=== PATIENT | female | born 1935 | race Caucasian/White ===

== ENCOUNTER 2025-01-03 08:01 | Emergency (ER) | payer MEDICARE, SELFPAY ==
[2025-01-03 08:05] VITALS: BP 172/88; PULSE 86; TEMP 36.9; O2SAT 97; BMI 39.5
--- NOTE | 2025-01-03 08:14 | ED_ITS ---
HPI HPI - General Adult General Chief complaint: Allergic Reaction Stated complaint: RASH Time Seen by Provider: 01/03/25 08:05 Source: patient Mode of arrival: ambulance Limitations: no limitations History of Present Illness HPI narrative: 89-year-old female presents from assisted living for a rash. She does not know when it started but she noticed it within the last day. She states it does not burn or itch. She does not know if she has been on any new medications. She had reportedly recently fallen and has a few small bruises on both forearms but there is this rash in addition to the bruises. She tells me she does not notice the rash unless she looks at it. Related Data Previous Rx's ?Medication ?Instructions ?Recorded triamcinolone acetonide 0.5 % 1 applic topical BID #15 grams 01/03/25 topical cream Allergies Allergy/AdvReac Type Severity Reaction Status Date / Time No Known Drug Allergies Allergy Verified 01/03/25 08:05 Review of Systems ROS Narrative A ten point review of systems is negative except as noted above. PFSH PFSH Social History Little interest or pleasure in doing things: not at all Feeling down, depressed, or hopeless: not at all Exam Narrative Exam Narrative: Nurses note and vital signs reviewed and patient is not hypoxic. General: The patient appears well and in no apparent distress. Patient is resting comfortably on cart. Skin: Warm, dry, no pallor noted. There are some bruises on each forearm. In addition there is an erythematous very minimally raised and therefore palpable rash present. There is no open area or drainage or lymphangitis or suggestion of infection. Head: Normocephalic, atraumatic Eye: Normal conjunctiva, no drainage Ears, Nose, Mouth, and Throat: oral mucosa is moist. Nares patent. Cardiovascular: Regular Rate and Rhythm Respiratory: Patient is in no distress, no accessory muscle use, lungs are clear to auscultation, no wheezing, rales or rhonchi Back: non-tender. There is no rash on her back GI: Obese soft and nontender. Abdominal wall has no rash. Musculoskeletal: All of her joints have full range of motion including her wrists and her elbows. She has no discomfort with range of motion of her wrists or her elbows Neurological: Awake and alert Psychiatric: Cooperative Constitutional Vital Signs, click to edit/add: Last Vital Signs Temp 98.4 F 01/03/25 08:05 Pulse 86 01/03/25 08:05 Resp 18 01/03/25 08:05 BP 172/88 H 01/03/25 08:05 Pulse Ox 97 01/03/25 08:05 O2 Del Method Room Air 01/03/25 08:05 Course Vital Signs Vital signs: Vital Signs Temperature 98.4 F 01/03/25 08:05 Pulse Rate 86 01/03/25 08:05 Respiratory Rate 18 01/03/25 08:05 Blood Pressure 172/88 H 01/03/25 08:05 Pulse Oximetry 97 01/03/25 08:05 Oxygen Delivery Method Room Air 01/03/25 08:05 Temperature 98.4 F 01/03/25 08:05 Pulse Rate 86 01/03/25 08:05 Respiratory Rate 18 01/03/25 08:05 Blood Pressure 172/88 H 01/03/25 08:05 Pulse Oximetry 97 01/03/25 08:05 Oxygen Delivery Method Room Air 01/03/25 08:05 Medical Decision Making MDM Narrative Medical decision making narrative: The cause of the rash is uncertain. It appears to be separate from the bruises. She has not been apparently exposed to any chemicals or cleaning agents nor has she been outside. She will be placed on Kenalog cream. Treatment diagnosis and follow-up were discussed with the patient. Differential Diagnosis Differential Diagnosis: Nonspecific rash, contact dermatitis Discharge Plan Discharge Chief Complaint: Allergic Reaction Clinical Impression: Rash Patient Disposition: Home, Self-Care Time of Disposition Decision: 08:07 Condition: Good Mode of Transportation: EMS Prescriptions / Home Meds: New triamcinolone acetonide 0.5 % cream 1 applic topical BID Qty: 15 0RF Print Language: Georgian Instructions: Acute Rash (ED)
== END 2025-01-03 09:51 | disposition home or self-care (01) ==
PROVIDERS: Emergency Provider Emergency Medicine
DX: R21 Rash and other nonspecific skin eruption (principal)
CPT/HCPCS: 99283

== ENCOUNTER 2025-05-25 07:35 | Emergency (ER) | payer MEDICARE, SELFPAY ==
--- OUTSIDE RECORDS SUMMARY | 2020-06-23 20:00 | XMS_ITS | Continuity of Care Document ---
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 Name Role Phone Maria R Elizabeth MD Unavailable Unavailable Allergies, Adverse Reactions, Alerts Substance Reaction Status Criticality No Known Allergies Active No Inform ation Procedures Procedure Date IMMUNIZATION ADMIN FLU VACC PRSV FREE INC ANTIG IMMUNIZATION ADMIN Advance Directives Directive Yes / No Effective Date File Name No Information Encounters Encounter Description Practice Location Reason(s) For Visit Diagnoses Date Provider Providers Copied on Encounter [facility] , [address], [place], [id number], [place] tel:[phone] [facility] Strategic Nurse Team No Information Glenn Heck. [address], [place], [id number], [place]. tel:[phone] Family History Family Member Type Diagnosis Age At Onset No Information Immunizations Vaccine Date Status Comments Influenza, quadrivalent, hig h dose, injectable, split virus, preservative free, 0.7 mL dose, Fluzone High-Dose Quad administered Source: New Immuniza tion Record Payers Payer name Insurance type Covered green party ID Authoriza tion(s) [employer] [place] [id number] [employer] [place] [id number] Social History Type Description Quantity Date Captured Comments Alcohol Use Details Unknown Caffeine Use Details Unknown Tobacco Use Status No Information Smoking Status No Information Sex Female Chief Complaint And Reason For Visit No Information Reason For Referral Reason For Referral No Information History Of Present Illness Encounter Date Complaint History Of Prese nt Illness No Information Functional Status Date Functional Assessmen t No Information Instructions Date Instruction Additional Infor mation No Information Assessments Type Assessment Date No Information Patient Care Teams Name Effective Dates (start - stop) Status Members No Information
[2025-05-25 07:37] VITALS: BP 152/63; PULSE 90; TEMP 36.6; O2SAT 99; BMI 39.1
--- NOTE | 2025-05-25 07:45 | CT_ITS ---
The [address] [address] Patient Name: NIMISHA PRADHAN MRN: [id number] date: 1935 Sex: F Assigned Patient Location: ED.MAIN Current Patient Location: ED.MAIN Accession/Order Number: [id number] Exam Date: 05/25/2025 08:10 Report Date: 05/25/2025 09:05 At the request of: TEZ SANCHEZ MD Procedure: CT head/brain wo con CT head/brain wo con 05/25/2025 8:37 AM SIGNS AND SYMPTOMS: Fall, headache TECHNIQUE:Multi-detector CT axial slices of the brain were obtained without IV contrast. CT was performed with one or more of the following dose reduction techniques: Automated exposure control, adjustment of the mA and/or kV according to patient size, or use of iterative reconstruction technique. COMPARISON: None. FINDINGS: There is no shift of the midline structures, acute intracranial bleeding, mass effects, or evidence of acute ischemia. Atherosclerotic changes are noted in the V4 segments of the vertebral arteries and intracranial segments of the internal carotid arteries. There is periventricular white matter hypoattenuation. The ventricular system is normal in size. The brainstem and the cerebellum are unremarkable. The visualized intraorbital contents, the visualized paranasal sinuses, and the infratemporal soft tissues show no acute abnormality. The osseous structures in the skull base and the calvarium show no abnormality. CT/CT head/brain wo con IMPRESSION: No acute intracranial pathology. Chronic age-related neurodegenerative changes are noted as above. Impression dictated by: Duncan Zuleta M.D. 05/25/2025 9:05 AM Dictation Location: [place] [address] Electronically authenticated by: [id number] Y Date: 05/25/2025 09:05
--- NOTE | 2025-05-25 07:45 | XR_ITS ---
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 There is moderate to severe disc height loss in the upper lumbar spine. Atherosclerotic changes are noted in the thoracic aorta.. No evidence of fracture or bony destructive lesion. XR/XR thoracic spine 2V IMPRESSION: No fracture or subluxation. 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 Multilevel degenerative changes noted as above. Impression dictated by: Duncan Zuleta M.D. 05/25/2025 9:06 AM Dictation Location: [place] [address] Electronically authenticated by: [id number] Y Date: 05/25/2025 09:06
--- NOTE | 2025-05-25 07:45 | XR_ITS ---
The [place] [id number] Patient Name: NIMISHA PRADHAN MRN: [id number] date: 1935 Sex: F Assigned Patient Location: ED.MAIN Current Patient Location: ED.MAIN Accession/Order Number: [id number] Exam Date: 05/25/2025 08:10 Report Date: 05/25/2025 09:07 At the request of: TEZ SANCHEZ MD Procedure: XR lumbar spine 2-3V XR lumbar spine 2-3V 05/25/2025 8:37 AM SIGNS AND SYMPTOMS: ^fall PROTOCOLS: Frontal and lateral graphs of the lumbar spine COMPARISON: None FINDINGS: There is a dextro convex curvature at the thoracolumbar junction with a levoconvex curvature of the lower lumbar spine. There is posterior and intervertebral fusion from L4 through S1. No hardware complication or malalignment. There is disc height loss throughout. Vertebral body heights are preserved. Degenerative changes are noted in the sacroiliac joints. XR/XR lumbar spine 2-3V IMPRESSION: No acute bony injury. Degenerative and postoperative changes are noted as above. Impression dictated by: Duncan Zuleta M.D. 05/25/2025 9:07 AM Dictation Location: [place] [address] Electronically authenticated by: [id number] Y Date: 05/25/2025 09:07
--- NOTE | 2025-05-25 07:45 | CT_ITS ---
[address] [address] Patient Name: NIMISHA PRADHAN MRN: [id number] date: 1935 Sex: F Assigned Patient Location: ED.MAIN Current Patient Location: ED.MAIN Accession/Order Number: [id number] Exam Date: 05/25/2025 08:10 Report Date: 05/25/2025 09:27 At the request of: TEZ SANCHEZ MD Procedure: CT cervical spine wo con CT cervical spine wo con 05/25/2025 8:37 AM SIGN AND SYMPTOMS: ^fall TECHNIQUE: Multi detector CT axial slices of the cervical spine were obtained without IV contrast. Volumetric acquisition sagittal, coronal, and 3-D reconstructions were performed and reviewed. CT was performed with one or more of the following dose reduction techniques: Automated exposure control, adjustment of the mA and/or kV according to patient size, or use of iterative reconstruction technique. COMPARISON: None. FINDINGS: There is preservation of the vertebral body heights and intervertebral discs. No fractures or dislocations are seen. There is 7 mm of anterolisthesis of C5 upon C6 with fusion of the C5-C6 intervertebral disc space. There is also fusion between the intervertebral discs at C4-C5 and C6-C7. There is severe disc height loss at C7-T1. Facet hypertrophy is present throughout the cervical spine. Degenerative changes are noted in the craniocervical junction and atlantoaxial joint. The prevertebral soft tissues are within normal limits. The paraspinous soft tissues are within normal limits. Atherosclerotic changes are noted in the carotid bifurcations. The lung apices are unremarkable. CT/CT cervical spine wo con IMPRESSION: No fracture. There is 7 mm of anterolisthesis of C5 upon C6 with fusion of the C5-C6 intervertebral disc space. Severe multilevel degenerative changes noted as above. Impression dictated by: Duncan Zuleta M.D. 05/25/2025 9:27 AM [facility]ictation [facility] Electron[facility] authenticated by: [id number] Y Date: 05/25/2025 09:27
--- NOTE | 2025-05-25 07:46 | ED.GENADUL1 ---
HPI HPI - General Adult General Chief complaint: Fall Stated complaint: FALL; BACK PAIN Time Seen by Provider: 05/25/25 07:37 Source: patient Mode of arrival: ambulance Limitations: no limitations History of Present Illness HPI narrative: 89-year-old female presented to the emergency department for head neck and back pain. This morning the patient states an aide was trying to get her up and the patient fell and the patient states she hit her entire back on the floor and she hit her head. Everything in that area hurts. According to the paramedics, they were told that the patient was lowered to the floor. This occurred just before coming into the emergency department. Related Data Home Medications ?Medication ?Instructions ?Recorded ?Confirmed Saccharomyces boulardii 250 mg 250 mg PO DAILY 05/25/25 05/25/25 capsule (Daily Probiotic (S. boulardii)) acetaminophen 325 mg capsule 1,300 mg PO TID 05/25/25 05/25/25 amlodipine 10 mg tablet 10 mg PO DAILY 05/25/25 05/25/25 apixaban 2.5 mg tablet (Eliquis) 2.5 mg PO Q12H 05/25/25 05/25/25 cholecalciferol (vitamin D3) 125 5,000 unit PO DAILY 05/25/25 05/25/25 mcg (5,000 unit) tablet ferrous sulfate 325 mg (65 mg 325 mg PO DAILY 05/25/25 05/25/25 iron) tablet (Feosol) furosemide 40 mg tablet 40 mg PO DAILY 05/25/25 05/25/25 lisinopril 40 mg tablet 40 mg PO DAILY 05/25/25 05/25/25 loperamide 2 mg tablet 2 mg PO Q6H PRN loose stool 05/25/25 05/25/25 (Anti-Diarrheal (loperamide)) loratadine 10 mg tablet 10 mg PO DAILY 05/25/25 05/25/25 (Allerclear) menthol 7.5 % topical patch 1 patch topical DAILY 05/25/25 05/25/25 metoprolol tartrate 50 mg tablet 50 mg PO Q12H 05/25/25 05/25/25 (Lopressor) olopatadine 0.2 % eye drops 1 drp ophthalmic (eye) DAILY 05/25/25 05/25/25 (Advanced Eye Relief (olopatadine HCl)) potassium chloride 20 mEq 20 meq PO DAILY 05/25/25 05/25/25 tablet,extended release therapeutic multivitamin 1 tab PO DAILY 05/25/25 05/25/25 (Thera-Tabs tablet) Previous Rx's ?Medication ?Instructions ?Recorded triamcinolone acetonide 0.5 % 1 applic topical BID #15 grams 01/03/25 topical cream Allergies Allergy/AdvReac Type Severity Reaction Status Date / Time shellfish derived Allergy Severe Anaphylaxis Verified 05/25/25 07:45 Opioid HPI Opioid Management Most Recent Opioid Data: Last Pain Scale 7 Today, 07:37 Last MAR Pain Assessment Today, 09:50 Review of Systems ROS Narrative A ten point review of systems is negative except as noted above. [facility] Medical History (Updated 05/25/25 @ 09:56 by Vinnie Box MD) Anxiety disorder ?F41.9 - Anxiety disorder, unspecified (ICD-10) COPD (chronic obstructive pulmonary disease) ?J44.9 - Chronic obstructive pulmonary disease, unspecified (ICD-10) Hypertension ?I10 - Essential (primary) hypertension (ICD-10) Afib ?I48.91 - Unspecified atrial fibrillation (ICD-10) Weakness ?R53.1 - Weakness (ICD-10) Vitamin D deficiency ?E55.9 - Vitamin D deficiency, unspecified (ICD-10) SIRS (systemic inflammatory response syndrome) ?R65.10 - Systemic inflammatory response syndrome (SIRS) of non-infectious origin without acute organ dysfunction (ICD-10) Sepsis ?A41.9 - Sepsis, unspecified organism (ICD-10) Incontinence of bowel ?R15.9 - Full incontinence of feces (ICD-10) Incontinence of urine ?R32 - Unspecified urinary incontinence (ICD-10) Incontinence in female ?R32 - Unspecified urinary incontinence (ICD-10) Hypo-osmolality and hyponatremia ?E87.1 - Hypo-osmolality and hyponatremia (ICD-10) Hypokalemia ?E87.6 - Hypokalemia (ICD-10) Dysphagia ?R13.10 - Dysphagia, unspecified (ICD-10) Chronic pain syndrome ?G89.4 - Chronic pain syndrome (ICD-10) Ulcerative colitis ?K51.90 - Ulcerative colitis, unspecified, without complications (ICD-10) Anemia ?D64.9 - Anemia, unspecified (ICD-10) Osteoarthritis ?M19.90 - Unspecified osteoarthritis, unspecified site (ICD-10) Social History Little interest or pleasure in doing things: not at all Feeling down, depressed, or hopeless: not at all Exam Narrative Exam Narrative: Nurses note and vital signs reviewed and patient is not hypoxic. General:The patient appears well and in no apparent distress.Patient is resting comfortably on cart. Skin:Warm, dry, no pallor noted.There is no rash noted. Head:Normocephalic, atraumatic Eye: Normal conjunctiva, no drainage Ears, Nose, Mouth, and Throat: oral mucosa is moist. Nares patent. Cardiovascular:Regular Rate and Rhythm Respiratory:Patient is in no distress, no accessory muscle use, lungs are clear to auscultation, no wheezing, rales or rhonchi Back: The entire length of her spine seems to be tender to palpation. There is no bruise or abrasion. GI: Soft and nontender Musculoskeletal: No palpable tenderness to her extremities including her hips. Small skin tear with bruising of the right upper arm. Neurological: Awake and alert Psychiatric:Cooperative Constitutional Vital Signs, click to edit/add: Last Vital Signs Temp 97.8 F 05/25/25 07:37 Pulse 90 05/25/25 07:37 Resp 05/25/25 07:37 BP 152/63 H 05/25/25 07:37 Pulse Ox 99 05/25/25 07:37 O2 Del Method Room Air 05/25/25 07:37 Course Vital Signs Vital signs: Vital Signs Temperature 97.8 F 05/25/25 07:37 Pulse Rate 90 05/25/25 07:37 Respiratory Rate 05/25/25 07:37 Blood Pressure 152/63 H 05/25/25 07:37 Pulse Oximetry 99 05/25/25 07:37 Oxygen Delivery Method Room Air 05/25/25 07:37 Temperature 97.8 F 05/25/25 07:37 Pulse Rate 90 05/25/25 07:37 Respiratory Rate 05/25/25 07:37 Blood Pressure 152/63 H 05/25/25 07:37 Pulse Oximetry 99 05/25/25 07:37 Oxygen Delivery Method Room Air 05/25/25 07:37 Medical Decision Making MDM Narrative Medical decision making narrative: All CAT scans and x-rays are negative for acute findings and she is released back to [facility]. Findings were discussed with the patient. Differential Diagnosis Differential Diagnosis: Fracture, contusion, intracranial hemorrhage Imaging Data CT scan - head: Radiologist's impression: ITS Impressions Cervical Spine CT 05/25/25 07:45 IMPRESSION: No fracture. There is 7 mm of anterolisthesis of C5 upon C6 with fusion of the C5-C6 intervertebral disc space. Severe multilevel degenerative changes noted as above. Impression dictated by: Duncan Zuleta M.D. 05/25/2025 9:27 AM Dictation Location: [id number] Electronically authenticated by: [id number] Y Date: 05/25/2025 09:[address] 05/25/25 07:45 IMPRESSION: No acute intracranial pathology. Chronic age-related neurodegenerative changes are noted as above. Impression dictated by: Duncan Zuleta M.D. 05/25/2025 9:05 AM Dictation Location: [facility] Electronically authenticated by: [id number] Y Date: 05/25/2025 09:05 Lumbar Spine X-Ray 05/25/25 07:45 IMPRESSION: No acute bony injury. Degenerative and postoperative changes are noted as above. Impression dictated by: Duncan Zuleta M.D. 05/25/2025 9:07 AM Dictation Location: [id number] Electronically authenticated by: [id number] Y Date: 05/25/2025 09:07 Thoracic Spine X-Ray 05/25/25 07:45 IMPRESSION: No fracture or subluxation. 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 Multilevel degenerative changes noted as above. Impression dictated by: Duncan Zuleta M.D. 05/25/2025 9:06 AM Dictation Location: [employer] Electronically authenticated by: [id number] Y Date: 05/25/2025 09:06 ECG Data Attestation: I personally reviewed and interpreted this ECG as follows: (EKG on my interpretation shows sinus rhythm with rate of 86 and no acute change) Discharge Plan Discharge Chief Complaint: Fall Clinical Impression: Fall, Skin tear Patient Disposition: Home, Self-Care Time of Disposition Decision: 09:55 Condition: Good Mode of Transportation: EMS Prescriptions / Home Meds: No Action triamcinolone acetonide 0.5 % cream 1 applic topical BID Qty: 15 0RF acetaminophen 325 mg capsule 1,300 mg PO TID amlodipine 10 mg tablet 10 mg PO DAILY Eliquis 2.5 mg tablet 2.5 mg PO Q12H ferrous sulfate [Feosol] 325 mg (65 mg iron) tablet 325 mg PO DAILY furosemide 40 mg tablet 40 mg PO DAILY lisinopril 40 mg tablet 40 mg PO DAILY loratadine [Allerclear] 10 mg tablet 10 mg PO DAILY metoprolol tartrate [Lopressor] 50 mg tablet 50 mg PO Q12H olopatadine [Advanced Eye Relief (olopatad)] 0.2 % drops 1 drp ophthalmic (eye) DAILY potassium chloride 20 mEq tablet extended release 20 meq PO DAILY Saccharomyces boulardii [Daily Probiotic (S. boulardii)] 250 mg capsule 250 mg PO DAILY Thera-Tabs Tablet 1 tab PO DAILY cholecalciferol (vitamin D3) 125 mcg (5,000 unit) tablet 5,000 unit PO DAILY menthol 7.5 % adhesive patch,medicated 1 patch topical DAILY Patient Comments: apply to lower back in AM and remove PM loperamide [Anti-Diarrheal (loperamide)] 2 mg tablet 2 mg PO Q6H PRN (Reason: loose stool) Print Language: Trinidadian Instructions: Fall Prevention for Older Adults (ED) Referrals: Physician,Non-Staff, MD [Primary Care Provider] - 1 week
--- OUTSIDE RECORDS SUMMARY | 2025-05-25 07:58 | XMS_ITS | Encounter Summary ---
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 Name Role Phone Unavailable Primary Care Provider Unavailabl e Encounter Details Date Type Department Care Team (Late st Contact Info) Description 03/04/2025 [facility] [address] [place] [id number] Unallocated, [facility]oms Provider, [address] [place] [address] Social History Tobacco Use Types Packs/Day Years Used Date Smoking Tobacco: Never Assessed Comments Unknown Sex and Gender Information Value Date Recorded Sex Assigned at Not on file Legal Sex Female 10:26 AM EDT Gender Identity Not on file Sexual Orientation Not on file documented as of this encounter Plan of Treatment Not on file documented as of this encounter Visit Diagnoses Not on filedocumented in this encounter
--- OUTSIDE RECORDS SUMMARY | 2025-05-25 07:58 | XMS_ITS | Encounter Summary ---
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
--- OUTSIDE RECORDS SUMMARY | 2025-05-25 07:58 | XMS_ITS | Clinical Summary ---
Author Organization [facility] Address [address] [place] [address] Care Team Providers Care Chainstitch Seat Joiner Name Role Phone Unavailable Primary Care Provider Unavailabl e Allergies Active Allergy Reactions Criticality Noted Date Comments Mold Extracts 06/17/2014 Other 06/17/2014 DUST, MOLD Shellfish Containing Products 2013 Medications multivitamin (THERAGRAN) per tablet Take 1 tablet by mouth daily . Active acetaminophen (Tylenol Arthritis Pain) 650 MG CR tabletIndications:D DD (degenerative disc disease), lumbar,Pain of left hip joint Take 2 (two) tablets (1,300 mg total) by mouth 2 (two) times a day . 9 Active amLODIPine (NORVASC) 5 MG tabletIndications:E ssential hypertension Take 1 (one) tablet (5 mg total) by mouth daily . 90 tablet 1 1 Active oxyCODONE-acetamino phen (PERCOCET) 5-325 mg per tabletIndications:L eft hip pain,Primary osteoarthritis of right knee 1 TO 2 TABS EVERY 4 TO 6 HOURS FOR PAIN . 90 tablet 1 Active lisinopriL (PRINIVIL,ZESTRIL) 20 MG tabletIndications:E ssential hypertension Take 2 (two) tablets (40 mg total) by mouth daily . 180 tablet 1 1 Active furosemide (LASIX) 20 MG tabletIndications:D ependent edema Take 1 (one) tablet (20 mg total) by mouth daily . 60 tablet 2 1 Active apixaban (ELIQUIS) 2.5 mg Tab Take 1 (one) tablet (2.5 mg total) by mouth 2 (two) times a day . 60 tablet 1 Active metoprolol tartrate (LOPRESSOR) 50 MG tablet Take 1 (one) tablet (50 mg total) by mouth 2 (two) times a day . 60 tablet 1 Active Active Problems Problem Noted Date Diagnosed Date Paroxysmal atrial fibrillation 05/15/2021 Assessment & Plan (05/15/2021 11:38 AM EDT): Patient was found to have atrial fibrillation overnight. At this time, she has reverted back to normal sinus rhythm. She was asymptomatic with the atrial fibrillation. At this time we are unsure whether the atrial fibrillation is paroxysmal or if this was the first episode secondary to her acute illness. She is a [id number] score of 4. I have spoken to her about the different anticoagulants. She states that she has been relatively stable on her feet. I would continue metoprolol 25 mg twice daily and start her on Eliquis 2.5 mg twice daily. She does meet requirements for low-dose Eliquis. We will obtain a 2-week event recorder at discharge and have her follow-up with us in the office. Fecal impaction 05/14/2021 Assessment & Plan (05/15/2021 10:00 AM EDT): - CT A/P without contrast showed fecal impaction with a large amount of stool throughout the distal colon and rectum, the rectum measures up to 8.5 cm in diameter. Fluid-filled proximal large and small bowel loops suggests an element of anatomic obstruction related to the stool - + bowel function - AXR 05/14 shows moderate amount of stool but likely improved from admission Xray - Continue on stool softeners, enemas and PRN suppositories Sepsis 05/13/2021 Generalized abdominal pain 05/13/2021 Assessment & Plan (05/15/2021 9:59 AM EDT): - Possibly related to diverticulitis or colitis per repeat CT 05/13 - No pneumoperitoneum on imaging - WBC slowly trending down, 18.28 - Afebrile, HDS, RA - Creat normalized - IVF - Vanc/Zosyn - Fulls - Lovenox for DVT ppx - PRN pain control per primary - [facility] [place] - Will see and discuss with Dr. Escalante - Monitor course Elevated troponin 05/13/2021 Assessment & Plan (05/15/2021 11:20 AM EDT): Patient originally comes to [facility] secondary to abdominal pain. Troponins were ordered and were mildly elevated. Patient denies any chest discomfort or shortness of breath. Patient's EKG showed Q waves anteriorly. At this time, her elevated troponins are most likely secondary to demand ischemia. Her echocardiogram showed normal EF with no segmental wall motion abnormalities. I spoke to her and her daughter. No further testing needed at this time. Follow-up with us in the office in 1 month. I have stated that if she should have any further episodes of chest discomfort, to let us know immediately Right knee pain 12/04/2020 Fall at home, initial encounter 09/17/2019 Acute left-sided low back pain without sciatica 08/09/2019 Assessment & Plan (08/09/2019 10:59 AM EST): S/p fall ~2 weeks ago now with left lower back/hip pain 08/08 CT L Spine: Severe degenerative changes as well as postsurgical changes as described above. There is foraminal narrowing to the left of midline at multiple levels and moderate effacement thecal sac at the L3-L4 level. Consulted by neurosurgery for lumbar FROILAN Discussed case and reviewed images with Dr. 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 Hypertension 06/17/2014 Gastritis 06/17/2014 Immunizations Immunization Administration Dates Next Due Influenza IIV3 high dose 65 and Older ,06/07/2018,06/07/2017,2015 Influenza IIV4 high dose 65 and Older 05/18/2021 ,06/24/2020 Pneumococcal Conjugate 13-Va lent (Prevnar 13) 06/17/2014 Tdap 10/14/2019 Family History Medical History Relation Comments Breast cancer Neg Hx Relation Status Comments Father Mother Social History Tobacco Use Types Packs/Day Years Used Date Smoking Tobacco: Never Smokeless Tobacco: Never Alcohol Use Standard Drinks/Week Comments Yes 1 (1 standard drink = 0.6 oz pur e alcohol) socially AUDIT-C Answer Date Recorded Q1: How often do you have a drink containing alc ohol? 2-4 times a month 12/24/2020 Q2: How many drinks containi ng alcohol do you have on a typical day when you are drinking? 1 or 2 12/24/2020 Q3: How often do you have si x or more drinks on one occasion? Never 12/24/2020 PHQ-2 Answer Date Recorded PHQ-2 Total Score 0 05/18/2021 Comments No Sex and Gender Information Value Date Recorded Sex Assigned at Not on file Legal Sex Female 11:25 PM EDT Gender Identity Female 08/08/2019 10:06 AM EST Sexual Orientation Straight 08/08/2019 10 :06 AM EST Last Filed Vital Signs Vital Sign Reading Time Taken Comments Blood Pressure 101/59 05/22/2021 10:37 AM EDT Pulse 84 05/22/2021 10:37 AM EDT Temperature 36.7 C (98 F) 05/22/2021 10:37 AM EDT Respiratory Rate 14 05/22/2021 10:37 AM EDT Oxygen Saturation 98% 05/22/2021 10:37 AM EDT Inhaled Oxygen Concentration - - Weight 49 kg (108 lb 0.4 oz) 05/12/2021 7:45 PM EDT Height 152.4 cm (5') 05/12/2021 7:45 PM EDT Body Mass Index 21.1 05/12/2021 7:45 PM EDT Plan of Treatment Health Maintenance Due Date Last Done Comments Dexa Scan 1935 Medicare Wellness Visit 1938 Zoster Vaccines (1 of 2) 1985 Respiratory Syncytial Virus Immunization: Risk, 60-74 Risk, or 75+ (1 - 1-dose 75+ series) 2010 Pneumococcal Vaccine: Age 50 + (2 of 2 - PCV20 or PCV21) 06/17/2015 06/17/2014 Falls Risk Assessment 12/06/2018 12/06/2017 Depression Screening/Follow- Up (PHQ-2/9) 05/18/2022 05/18/2021 COVID-19 Vaccine (1 - 2023-2 5 season) 2025 Influenza Vaccine (#1) 2025 , 06/24/2020, 08/23/2019, Additional history exists Tetanus: Every 10yrs 10/14/2029 10/14/2019 Insurance MANAGED MEDICARE PPO Advance Directives For more information, please contact: [phone] * DNRCC-Arrest (Latest Code Status on File) Date Activated Date Inactivated Comments 05/14/2021 1:38 PM 05/22/2021 4:12 PM Question Answer Comments Detail: No intubation * Full Code - Unverified Date Activated Date Inactivated Comments 05/13/2021 6:26 AM 05/14/2021 1:38 PM * Full Code Date Activated Date Inactivated Comments 12/04/2020 6:45 PM 12/07/2020 5:39 PM * Full Code Date Activated Date Inactivated Comments 08/08/2019 1:49 PM 10/14/2019 7:03 AM
--- OUTSIDE RECORDS SUMMARY | 2025-05-25 07:58 | XMS_ITS | Encounter Summary ---
Author Organization [facility] Address [address] [place] [address] Care Team Providers Care Dean For Student Affairs Name Role Phone Unavailable Primary Care Provider Unavailabl e Encounter Details Date Type Department Care Team (Late st Contact Info) Description 03/04/2025 [facility] [address] [place] [phone] Unallocated, Noms Provider, [address] [place] [address] Social History Tobacco Use Types Packs/Day Years [...]
--- OUTSIDE RECORDS SUMMARY | 2025-05-25 07:58 | XMS_ITS | Encounter Summary ---
Author Organization [facility] Address [address] [place] [address] Care Team Providers Care Fibre Technologist Name Role Phone Unavailable Primary Care Provider Unavailabl e Encounter Details Date Type Department Care Team (Late st Contact Info) Description 04/01/2025 [facility] [address] [place] [phone] Unallocated, Noms Provider, [address] [place] [address] Social History Tobacco Use Types Packs/Day Years [...]
--- OUTSIDE RECORDS SUMMARY | 2025-05-25 07:58 | XMS_ITS | Encounter Summary ---
Author Organization [facility] Address [address] [place] [address] Care Team Providers Care Clinical Project Manager Name Role Phone Unavailable Primary Care Provider Unavailabl e Encounter Details Date Type Department Care Team (Late st Contact Info) Description 02/11/2025 [facility] [address] [place] [phone] Unallocated, Noms Provider, [address] [place] [address] Social History Tobacco Use Types Packs/Day Years [...]
--- OUTSIDE RECORDS SUMMARY | 2025-05-25 07:58 | XMS_ITS | Encounter Summary ---
Author Organization [facility] Address [address] [place] [address] Care Team Providers Care Hydrogen Treater Name Role Phone Unavailable Primary Care Provider Unavailabl e Encounter Details Date Type Department Care Team (Late st Contact Info) Description 04/04/2025 [facility] [address] [place] [phone] Unallocated, Noms Provider, [address] [place] [address] Social History Tobacco Use Types Packs/Day Years [...]
--- OUTSIDE RECORDS SUMMARY | 2025-05-25 07:58 | XMS_ITS | Encounter Summary ---
Author Organization [facility] Address [address] [place] [address] Care Team Providers Care Printing Roller Handler Name Role Phone Unavailable Primary Care Provider Unavailabl e Encounter Details Date Type Department Care Team (Late st Contact Info) Description 03/04/2025 [facility] [address] [place] [phone] Unallocated, Noms Provider, [address] [place] [address] Social History Tobacco Use Types Packs/Day Years [...]
--- OUTSIDE RECORDS SUMMARY | 2025-05-25 07:58 | XMS_ITS | Encounter Summary ---
Author Organization [facility] Address [address] [place] [address] Care Team Providers Care Hog Ribber Name Role Phone Unavailable Primary Care Provider Unavailabl e Encounter Details Date Type Department Care Team (Late st Contact Info) Description 03/19/2025 [facility] [address] [place] [phone] Unallocated, Noms Provider, [address] [place] [address] Social History Tobacco Use Types Packs/Day Years [...]
--- OUTSIDE RECORDS SUMMARY | 2025-05-25 07:58 | XMS_ITS | Encounter Summary ---
Author Organization [facility] Address [address] [place] [address] Care Team Providers Care Heritage Consultant Name Role Phone Unavailable Primary Care Provider Unavailabl e Encounter Details Date Type Department Care Team (Late st Contact Info) Description 02/01/2025 Abstract [facility] [address] [facility] [address] [place] [phone] Jessica Schwarz, ABDI [address] [facility] [address] [place] [address] Social History Tobacco Use Types Packs/Day Years [...]
--- OUTSIDE RECORDS SUMMARY | 2025-05-25 07:58 | XMS_ITS | Encounter Summary ---
Author Organization [facility] Address [address] [place] [address] Care Team Providers Care Waste Management Engineer Name Role Phone Unavailable Primary Care Provider Unavailabl e Encounter Details Date Type Department Care Team (Late st Contact Info) Description 04/09/2025 Abstract [facility] [address] [place] [phone] Unallocated, Noms Provider, [address] [place] [address] Social History Tobacco Use Types Packs/Day Years [...]
--- OUTSIDE RECORDS SUMMARY | 2025-05-25 07:58 | XMS_ITS | Encounter Summary ---
Author Organization [facility] Address [address] [place] [address] Care Team Providers Care Histotechnologist Name Role Phone Unavailable Primary Care Provider Unavailabl e Encounter Details Date Type Department Care Team (Late st Contact Info) Description 04/22/2025 Abstract [facility] [id number] [place] [phone] Unallocated, Noms Provider, [address] [place] [address] Social History Tobacco Use Types Packs/Day Years [...]
--- OUTSIDE RECORDS SUMMARY | 2025-05-25 07:58 | XMS_ITS | Encounter Summary ---
Author Organization [facility] Address [address] [place] [address] Care Team Providers Care Pooling Operator Name Role Phone Unavailable Primary Care Provider Unavailabl e Encounter Details Date Type Department Care Team (Late st Contact Info) Description 04/30/2025 Abstract [facility] [address] [place] [phone] Unallocated, Noms Provider, [address] [place] [address] Social History Tobacco Use Types Packs/Day Years [...]
--- OUTSIDE RECORDS SUMMARY | 2025-05-25 07:58 | XMS_ITS | Encounter Summary ---
Author Organization [facility] Address [address] [place] [address] Care Team Providers Care Marine Design Engineer Name Role Phone Unavailable Primary Care Provider Unavailabl e Encounter Details Date Type Department Care Team (Late st Contact Info) Description 02/14/2025 Abstract [facility] [address] [place] [phone] Unallocated, Noms Provider, [address] [place] [address] Social History Tobacco Use Types Packs/Day Years [...]
--- OUTSIDE RECORDS SUMMARY | 2025-05-25 07:58 | XMS_ITS | Encounter Summary ---
Author Organization [facility] Address [address] [place] [address] Care Team Providers Care Rn Long Term Care Name Role Phone Unavailable Primary Care Provider Unavailabl e Encounter Details Date Type Department Care Team (Late st Contact Info) Description 02/08/2025 [facility] [address] [place] [phone] Unallocated, Noms Provider, [address] [place] [address] Social History Tobacco Use Types Packs/Day Years [...]
--- OUTSIDE RECORDS SUMMARY | 2025-05-25 07:58 | XMS_ITS | Encounter Summary ---
Author Organization [facility] Address [address] [place] [address] Care Team Providers Care Lead Project Engineer Name Role Phone Unavailable Primary Care Provider Unavailabl e Encounter Details Date Type Department Care Team (Late st Contact Info) Description 03/21/2025 Abstract [facility] [address] [place] [phone] Unallocated, Noms Provider, [address] [place] [address] Social History Tobacco Use Types Packs/Day Years [...]
--- OUTSIDE RECORDS SUMMARY | 2025-05-25 07:58 | XMS_ITS | Encounter Summary ---
Author Organization [facility] Address [address] [place] [address] Care Team Providers Care Tonguer Name Role Phone Unavailable Primary Care Provider Unavailabl e Encounter Details Date Type Department Care Team (Late st Contact Info) Description 03/07/2025 Abstract [facility] [address] [place] [phone] Unallocated, Noms Provider, [address] [place] [address] Social History Tobacco Use Types Packs/Day Years [...]
--- OUTSIDE RECORDS SUMMARY | 2025-05-25 07:58 | XMS_ITS | Encounter Summary ---
Author Organization [facility] Address [address] [place] [address] Care Team Providers Care Gymnasium Teacher Name Role Phone Unavailable Primary Care Provider Unavailabl e Encounter Details Date Type Department Care Team (Late st Contact Info) Description 03/21/2025 Abstract [facility] [address] [place] [phone] Unallocated, Noms Provider, [address] [place] [address] Social History Tobacco Use Types Packs/Day Years [...]
--- OUTSIDE RECORDS SUMMARY | 2025-05-25 07:59 | XMS_ITS | Encounter Summary ---
Author Organization [facility] Address [address] [place] [address] Care Team Providers Care Recovery Assistant Name Role Phone Unavailable Primary Care Provider Unavailabl e Encounter Details Date Type Department Care Team (Late st Contact Info) Description 05/01/2025 Abstract [facility] [address] [place] [phone] Unallocated, Noms Provider, [address] [place] [address] Social History Tobacco Use Types Packs/Day Years [...]
--- OUTSIDE RECORDS SUMMARY | 2025-05-25 07:59 | XMS_ITS | Encounter Summary ---
Author Organization [facility] Address [address] [place] [address] Care Team Providers Care Eap Specialist Name Role Phone Unavailable Primary Care Provider Unavailabl e Encounter Details Date Type Department Care Team (Late st Contact Info) Description 05/02/2025 Abstract [facility] [address] [place] [address] Unallocated, Noms Provider, [address] [place] [address] Social History Tobacco Use Types Packs/Day Years [...]
--- OUTSIDE RECORDS SUMMARY | 2025-05-25 07:59 | XMS_ITS | Encounter Summary ---
Author Organization [facility] Address [address] [place] [address] Care Team Providers Care Greenskeeper Supervisor Name Role Phone Unavailable Primary Care Provider Unavailabl e Encounter Details Date Type Department Care Team (Late st Contact Info) Description 05/02/2025 Abstract [facility] [address] [place] [phone] Unallocated, Noms Provider, [address] [place] [address] Social History Tobacco Use Types Packs/Day Years [...]
--- OUTSIDE RECORDS SUMMARY | 2025-05-25 07:59 | XMS_ITS | Encounter Summary ---
Author Organization [facility] Address [address] [place] [address] Care Team Providers Care Data Recovery Planner Name Role Phone Unavailable Primary Care Provider Unavailabl e Encounter Details Date Type Department Care Team (Late st Contact Info) Description 02/01/2025 Abstract [facility] [address] [facility] [address] [place] [phone] Jessica Schwarz, ABDI [address] [facility] 110 [place] [address] Social History Tobacco Use Types Packs/Day Years [...]
--- OUTSIDE RECORDS SUMMARY | 2025-05-25 07:59 | XMS_ITS | Encounter Summary ---
Author Organization [facility] Address [address] [place] [address] Care Team Providers Care Circulation Analyst Name Role Phone Unavailable Primary Care Provider Unavailabl e Encounter Details Date Type Department Care Team (Late st Contact Info) Description 01/30/2025 Abstract [facility] [address] [place] [phone] Unallocated, Noms Provider, [address] [place] [address] Social History Tobacco Use Types Packs/Day Years [...]
--- OUTSIDE RECORDS SUMMARY | 2025-05-25 07:59 | XMS_ITS | Encounter Summary ---
Author Organization [facility] Address [address] [place] [address] Care Team Providers Care Warehouse Production Worker Name Role Phone Unavailable Primary Care Provider Unavailabl e Encounter Details Date Type Department Care Team (Late st Contact Info) Description 05/02/2025 [facility] [address] [place] [address] Unallocated, Noms Provider, [address] [place] [address] Social History Tobacco Use Types Packs/Day Years [...]
--- OUTSIDE RECORDS SUMMARY | 2025-05-25 07:59 | XMS_ITS | Encounter Summary ---
Author Organization [facility] Address [address] [place] [address] Care Team Providers Care Wood Polisher Name Role Phone Unavailable Primary Care Provider Unavailabl e Encounter Details Date Type Department Care Team (Late st Contact Info) Description 05/02/2025 Abstract [facility] [address] [place] [address] [phone] Unallocated, Noms Provider, [address] [place] [address] Social History Tobacco Use Types Packs/Day Years [...]
--- OUTSIDE RECORDS SUMMARY | 2025-05-25 07:59 | XMS_ITS | Clinical Summary ---
Author Organization [facility] Address [address] [facility] [place] [address] Care Team Providers Care Senior Clerk Name Role Phone Unavailable Primary Care Provider Unavailabl e Encounters Date Type Department Care Team Description 05/02/2025 Abstract [facility] [address] [place] [phone] Unallocated, Noms MD Lai 05/02/2025 Abstract [facility] [address] [place] [phone] Unallocated, Noms ProviderMD 05/02/2025 Abstract [facility] [address] [place] [address] Unallocated, Noms MD Lai 05/02/2025 Abstract [facility] [address] [place] [phone] Unallocated, Raffis MD Lai 05/01/2025 Abstract [facility] [address] [place] [phone] Unallocated, Noms MD Lai 04/30/2025 Abstract [facility] [address] [place] [phone] Unallocated, Noms ProviderMD 04/22/2025 Abstract [facility] [address] [place] [phone] Unallocated, Noms MD Lai 04/09/2025 Abstract [facility] [address] [facility] [address] [place] [address] Unallocated, Noms MD Lai 04/04/2025 Abstract [facility] [address] [place] [address] Unallocated, Noms Provider, 04/01/2025 Abstract [facility] [address] [place] [address] Unallocated, Noms Provider, 03/21/2025 Abstract [facility] [address] [place] [address] Unallocated, Noms Provider, 03/21/2025 Abstract [facility] [address] [place] [address] Unallocated, Noms Provider, 03/19/2025 Abstract [facility] [address] [place] [address] Unallocated, Noms Provider, 03/19/2025 Abstract [facility] [address] [place] [address] Unallocated, Noms Provider, 03/07/2025 Abstract [facility] [address] [place] [address] Unallocated, Noms Provider, 03/06/2025 Telephone [facility] [address] [place] [address] Jessica Schwarz, SALESPERSON BOOKS 03/04/2025 Abstract [facility] [address] [place] [address] Unallocated, Noms Provider, 03/04/2025 Abstract [facility] [address] [place] [address] Unallocated, Noms ProviderMD 03/04/2025 Abstract [facility] [address] [place] [address] Unallocated, Vaughn Hoyt MD from Last 3 Months Social History Tobacco Use Types Packs/Day Years Used Date Smoking Tobacco: Never Assessed Comments Unknown Sex and Gender Information Value Date Recorded Sex Assigned at Not on file Legal Sex Female 10:26 AM EDT Gender Identity Not on file Sexual Orientation Not on file Plan of Treatment Not on file Insurance [employer]
[2025-05-25] MEDS: ACETAMINOPHEN 500 MG TABLET PO (09:50)
--- NOTE | 2025-05-25 09:57 | ECG_ITS ---
[facility] Test Date: 2025-05-25 Pat Name: NIMISHA PRADHAN Department: Room: - Gender: Female Towboat Engineer: : [id number] Requested By: [id number] Order Number: [id number] Reading MD: DANIELITO HUFFMAN M.D. Measurements Intervals [place] Rate: 86 P: 57 CT: 184 QRS: 11 QRSD: 72 T: 113 QT: 324 QTc: 368 Interpretive Statements 1100 Sinus rhythm 1102 Sinus arrhythmia 4068 Nonspecific Twave abnormality 8102 Low QRS voltage in chest leads Abnormal ECG No previous ECG available for comparison Electronically Signed On 05-26-2025 10:25:56 EDT by DANIELITO HUFFMAN M.D.
== END 2025-05-25 11:39 | disposition home or self-care (01) ==
PROVIDERS: Emergency Provider Emergency Medicine
DX: S41.111A Laceration without foreign body of right upper arm, initial encounter (principal); W18.39XA Other fall on same level, initial encounter; Z98.1 Arthrodesis status; M54.9 Dorsalgia, unspecified
CPT/HCPCS: 70450; 72070; 72100; 72125; 76376; 93005; 99285